=== PATIENT | female | born 1995 | race Caucasian/White ===

== ENCOUNTER 2022-07-11 13:04 | Emergency (ER) | payer OTHER ==
[~2022-07-11] VITALS: Ht 170.2 cm; Wt 172.7 kg
[2022-07-11 13:17] VITALS: BP 150/86
== END 2022-07-11 16:39 | disposition left against medical advice (07) ==
LOC: M ED 13:04
DX: Z53.29 Procedure and treatment not carried out because of patient's decision for other reasons (principal)

== ENCOUNTER → 2022-09-03 | Outpatient (REF) | payer OTHER ==
[2022-09-03 17:14] LABS: BASO % 0.3 % (0.0-1.0); EOS # 0.4 10^3/uL (0.0-0.5); EOS % 3.1 % (0.0-3.0); HEMATOCRIT 41.8 % (36.0-47.0); HEMOGLOBIN 12.9 g/dl (12.0-15.5); LYMPH # 3.2 10^3/uL (1.5-5.0); MEAN CORPUSCULAR HEMOGLOBIN 24.9 pg (27.0-33.0); MEAN CORPUSCULAR HGB CONC 30.9 g/dl (32.0-36.5); MEAN CORPUSCULAR VOLUME 80.5 fl (80.0-96.0); MONO # 0.7 10^3/uL (0.0-0.8); MONO % 5.9 % (2.0-8.0); NEUTROPHILS # 6.8 10^3/uL (1.5-8.5); NEUTROPHILS % 61.5 % (36.0-66.0); PLATELET COUNT, AUTOMATED 323 10^3/uL (150-450); RED BLOOD COUNT 5.19 10^6/uL (4.00-5.40); WHITE BLOOD COUNT 11.1 10^3/uL (4.0-10.0)
[2022-09-03 17:41] LABS: HEMOGLOBIN A1c 5.8 %
[2022-09-03 17:54] LABS: HCG, SERUM QUALITATIVE NEGATIVE (NEGATIVE)
[2022-09-03 18:05] LABS: CHOLESTEROL LEVEL 119 MG/DL (<200); HDL CHOLESTEROL 35 MG/DL (>40); LDL CHOLESTEROL 71 MG/DL (<100); NON-HDL-C 84 MG/DL; THYROID STIMULATING HORMONE 0.767 uIU/ML (0.358-3.740); TRIGLYCERIDES LEVEL 64 MG/DL (<150)
== END ==
LOC: M LAB REF 16:42
PROVIDERS: ATTEND Pediatrics
DX: N92.5 Other specified irregular menstruation (principal); E66.01 Morbid (severe) obesity due to excess calories; R73.03 Prediabetes